=== PATIENT | female | born 1940 | race Caucasian/White ===

== ENCOUNTER 2021-09-12 07:27 | Emergency (ER) | payer MEDICARE, OTHER ==
[~2021-09-12] VITALS: Ht 180.3 cm; Wt 108.9 kg
[2021-09-12] MEDS ORDERED: MORPHINE SULFATE INJECTION 2 MG/ML SYRG IM ONE (08:15)
[2021-09-12] MEDS ORDERED: ONDANSETRON ODT 4 MG TAB PO ONE (08:15)
[2021-09-12] MEDS ORDERED: ACE3T PO (08:24)
[2021-09-12 08:34] VITALS: BP 141/63
== END 2021-09-12 08:57 | disposition home or self-care (01) ==
LOC: ER 07:27
DX: S16.1XXA Strain of muscle, fascia and tendon at neck level, initial encounter (principal); M47.812 Spondylosis without myelopathy or radiculopathy, cervical region; M48.02 Spinal stenosis, cervical region; I10 Essential (primary) hypertension; Z79.899 Other long term (current) drug therapy; X58.XXXA Exposure to other specified factors, initial encounter; Y93.89 Activity, other specified; Y92.89 Other specified places as the place of occurrence of the external cause; Y99.8 Other external cause status
CPT/HCPCS: 72125; 96372; 99284; J2270; Q0162

== ENCOUNTER → 2022-01-07 | Outpatient (CLI) | payer MEDICARE, OTHER ==
[~2022-01-07] MED LIST: ACE3T PO
[2022-01-07 09:32] LABS: Potassium 4.1 mmol/L (3.5-5.1)
[2022-01-07 09:41] LABS: Albumin 3.2 g/dL (3.4-5.0); BUN/Creatinine Ratio 23.1; Bilirubin, Total 0.4 mg/dL (0.2-1.0); Calcium 9.3 mg/dL (8.5-10.1); Total Protein 7.5 g/dL (6.4-8.2)
== END | disposition home or self-care (01) ==
LOC: LAB 08:14
PROVIDERS: ATTEND Internal Medicine
DX: E11.69 Type 2 diabetes mellitus with other specified complication (principal); E78.5 Hyperlipidemia, unspecified
CPT/HCPCS: 36415; 80053; 83036

== ENCOUNTER 2022-07-03 07:45 | Inpatient (IN) | payer MEDICARE, OTHER ==
[~2022-07-03] VITALS: Ht 180.3 cm; Wt 109.3 kg
[2022-07-03 08:48] LABS: Urine Bacteria FEW /hpf (None Seen); Urine Blood Negative /uL (Negative); Urine Hyaline Cast FEW /lpf (0 - 2); Urine Specific Gravity 1.015 (1.001-1.035); Urine WBC 45 /hpf (0 - 5)
[2022-07-03 08:56] LABS: Hematocrit 37.6 % (36.0-46.0); Hemoglobin 12.5 g/dL (12.2-16.2); Mean Corpuscular Hemoglobin 26.9 pg (28.0-32.0); Mean Corpuscular Hgb Conc. 33.3 g/dL (32.0-36.0); Mean Corpuscular Volume 80.9 fL (80.0-100.0)
[2022-07-03 08:58] LABS: Red Blood Cells 4.64 10^6/uL (4.0-5.20); Red Cell Distribution Width 15.2 % (11.8-14.3); White Blood Cell 10.1 10^3/uL (4.4-10.8)
[2022-07-03 09:10] LABS: Basophils % (manual) 0 (0.0-2.0); Blast Cells 0; Metamyelocytes % 0; Myelocytes % 0; Promyelocytes % 0; Reactive Lymphocytes 0
[2022-07-03 09:13] LABS: Albumin 3.4 g/dL (3.4-5.0); Calcium 9.2 mg/dL (8.5-10.1)
[2022-07-03 09:17] LABS: BUN/Creatinine Ratio 20.8; Bilirubin, Total 0.3 mg/dL (0.2-1.0); Total Protein 7.5 g/dL (6.4-8.2)
[2022-07-03 10:52] LABS: Band Neutrophils % (manual) 10; Eosinophils % (manual) 1 (0-7); Lymphocytes % (manual) 25 (10.0-50.0); Monocytes % (manual) 9 (0-12)
[2022-07-03] MEDS ORDERED: ENOXAPARIN SOD 100 MG/1 ML SYRINGE SC ONE (11:45)
[2022-07-03] MEDS ORDERED: cefTRIAXone 1GM/50ML D5W 50 ML IV ONE (11:45)
[2022-07-03] MEDS ORDERED: SODIUM CHLORIDE 0.9% 1,000 ML IV ONE (11:45)
[2022-07-03] MEDS ORDERED: PANTOPRAZOLE 40 MG/10 ML VIAL INJ IV ONE (13:15)
[2022-07-03 14:08] LABS: INR 0.92 (0.9-1.15)
[2022-07-03 14:23] LABS: Cholesterol 175 mg/dL (< 200); Triglycerides 263 mg/dL (< 150)
[2022-07-03 14:24] LABS: HDL Cholesterol 47 mg/dL (40-59); LDL Cholesterol 102 mg/dL (< 100)
[2022-07-03 20:48] LABS: Protein, Urine 20.7 mg/dL (0.0-11.9)
[2022-07-03] MEDS: SODIUM CHLORIDE 0.9% 1,000 ML IV SCH (21:51)
[2022-07-04] MEDS: ENOXAPARIN SOD 100 MG/1 ML SYRINGE SC SCH ×2 (00:02→11:08)
[2022-07-04] MEDS ORDERED: IBUPROFEN 600 MG TAB PO PRN (04:15)
[2022-07-04] MEDS ORDERED: ACETAMINOPHEN/CODEINE#3 (300/30mg) TAB PO PRN (04:15)
[2022-07-04 05:06] LABS: Hematocrit 39.3 % (36.0-46.0); Hemoglobin 13.2 g/dL (12.2-16.2); Mean Corpuscular Hemoglobin 27.3 pg (28.0-32.0); Mean Corpuscular Hgb Conc. 33.6 g/dL (32.0-36.0); Mean Corpuscular Volume 81.4 fL (80.0-100.0); Red Blood Cells 4.83 10^6/uL (4.0-5.20); Red Cell Distribution Width 15.3 % (11.8-14.3); White Blood Cell 11.6 10^3/uL (4.4-10.8)
[2022-07-04 05:12] LABS: Basophils % (manual) 0 (0.0-2.0); Blast Cells 0; Metamyelocytes % 0; Promyelocytes % 0; Reactive Lymphocytes 0
[2022-07-04 05:21] LABS: Albumin 3.5 g/dL (3.4-5.0); BUN/Creatinine Ratio 21.4; Calcium 9.5 mg/dL (8.5-10.1); Potassium 3.7 mmol/L (3.5-5.1)
[2022-07-04 05:24] LABS: Bilirubin, Total 0.4 mg/dL (0.2-1.0); Total Protein 7.8 g/dL (6.4-8.2)
[2022-07-04 06:46] LABS: Band Neutrophils % (manual) 2; Eosinophils % (manual) 1 (0-7); Lymphocytes % (manual) 25 (10.0-50.0); Monocytes % (manual) 8 (0-12); Myelocytes % 1
[2022-07-04 07:55] VITALS: BP 147/78
[2022-07-04 09:00] VITALS: BP 147/78
[2022-07-04] MEDS ORDERED: NEBI5TAB2 PO (09:40)
[2022-07-04] MEDS ORDERED: IRBE300T48 PO (09:40)
[2022-07-04] MEDS ORDERED: PANTOPRAZOLE 40 MG/10 ML VIAL INJ IV SCH (10:00)
[2022-07-04] MEDS: SODIUM CHLORIDE 0.9% 1,000 ML IV SCH (11:08)
[2022-07-04] MEDS ORDERED: ENOXAPARIN SOD 100 MG/1 ML SYRINGE SC SCH (11:15)
[2022-07-04] MEDS ORDERED: cefTRIAXone 1GM/50ML D5W 50 ML IV ONE (12:15)
[2022-07-04 13:00] VITALS: BP 131/60
[2022-07-04 17:00] VITALS: BP 141/62
[2022-07-04 22:00] VITALS: BP 113/47
[2022-07-04] MEDS: APIXABAN 5 MG TAB PO SCH (22:12)
[2022-07-05 05:00] VITALS: BP 103/32
[2022-07-05] MEDS: SODIUM CHLORIDE 0.9% 1,000 ML IV SCH (05:52)
[2022-07-05 09:00] VITALS: BP 132/54
[2022-07-05] MEDS ORDERED: cefTRIAXone 1GM/50ML D5W 50 ML IV SCH (09:00)
[2022-07-05] MEDS: APIXABAN 5 MG TAB PO SCH (10:03)
[2022-07-05 13:18] VITALS: BP_SYST 143; BP_SYST 147; BP_DIAS 59; BP_DIAS 96
[2022-07-05] MEDS ORDERED: APIX5TAB PO (14:31)
[2022-07-11] MEDS ORDERED: APIXABAN 5 MG TAB PO SCH (22:00)
== END 2022-07-05 16:55 | disposition home or self-care (01) | DRG 299 ==
LOC: ER 07:45 → OVERFLOW 13:20 → WEST WING 07-04 07:52
PROVIDERS: ADMIT Nurse Practitioner Family; ATTEND Internal Medicine
DX: I82.411 Acute embolism and thrombosis of right femoral vein (principal); N17.0 Acute kidney failure with tubular necrosis; N39.0 Urinary tract infection, site not specified; D68.59 Other primary thrombophilia; E66.01 Morbid (severe) obesity due to excess calories; I12.9 Hypertensive chronic kidney disease with stage 1 through stage 4 chronic kidney disease, or unspecified chronic kidney disease; N18.30 Chronic kidney disease, stage 3 unspecified; I82.431 Acute embolism and thrombosis of right popliteal vein; Z20.822 Contact with and (suspected) exposure to COVID-19; Z68.33 Body mass index [BMI] 33.0-33.9, adult
CPT/HCPCS: 36415; 76775; 80053; 80061; 81001; 82570; 83036; 83970; 84100; 84156; 84300; 84443; 85007; 85027; 85610; 87086; 87426; 93971; 96365; C9113; G0378; J0696

== ENCOUNTER → 2022-07-17 | Outpatient (CLI) | payer MEDICARE, OTHER ==
[~2022-07-17] MED LIST changes: +APIX5TAB PO; +IRBE300T48 PO; +NEBI5TAB2 PO
== END | disposition home or self-care (01) ==
LOC: LAB 13:38
PROVIDERS: ATTEND Internal Medicine Cardiovascular Disease
DX: R94.4 Abnormal results of kidney function studies (principal)
CPT/HCPCS: 36415; 82565; 84520

== ENCOUNTER → 2022-07-18 | Outpatient (CLI) | payer MEDICARE, OTHER ==
[~2022-07-18] MED LIST changes: +IOHEXOL 350 MG/ML 100ML IJ ONE
[2022-07-18 10:00] VITALS: BP 132/56
[2022-07-18 10:37] VITALS: BP 154/52
== END | disposition home or self-care (01) ==
LOC: Rad HDHVI 09:34
PROVIDERS: ATTEND Internal Medicine Cardiovascular Disease
DX: I70.0 Atherosclerosis of aorta (principal); N94.89 Other specified conditions associated with female genital organs and menstrual cycle; N28.1 Cyst of kidney, acquired
CPT/HCPCS: 74177; G0463; Q9967

== ENCOUNTER → 2022-07-30 | Outpatient (CLI) | payer MEDICARE, OTHER ==
[~2022-07-30] MED LIST changes: -IOHEXOL 350 MG/ML 100ML IJ ONE
== END | disposition home or self-care (01) ==
LOC: Rad HDHVI 09:31
PROVIDERS: ATTEND Internal Medicine Cardiovascular Disease
DX: R07.89 Other chest pain (principal); R06.02 Shortness of breath; E78.5 Hyperlipidemia, unspecified
CPT/HCPCS: 93306

== ENCOUNTER → 2022-08-07 | Outpatient (CLI) | payer MEDICARE, OTHER | END | disposition home or self-care (01) | LOC: Rad HDHVI 09:32 | PROVIDERS: ATTEND Internal Medicine Cardiovascular Disease | DX: I82.431 Acute embolism and thrombosis of right popliteal vein (principal); D23.72 Other benign neoplasm of skin of left lower limb, including hip | CPT/HCPCS: 93971 ==

== ENCOUNTER → 2022-10-23 | Outpatient (CLI) | payer MEDICARE, OTHER | END | disposition home or self-care (01) | LOC: Rad HDHVI 08:06 | PROVIDERS: ATTEND Internal Medicine Cardiovascular Disease | DX: I82.401 Acute embolism and thrombosis of unspecified deep veins of right lower extremity (principal) | CPT/HCPCS: 93971 ==

== ENCOUNTER → 2023-01-15 | Outpatient (CLI) | payer MEDICARE, OTHER | END | disposition home or self-care (01) | LOC: Rad HDHVI 13:28 | PROVIDERS: ATTEND Internal Medicine Cardiovascular Disease | DX: I82.409 Acute embolism and thrombosis of unspecified deep veins of unspecified lower extremity (principal) | CPT/HCPCS: 93925 ==

== ENCOUNTER 2024-11-20 07:34 | Inpatient (IN) | payer MEDICARE, OTHER ==
[~2024-11-20] VITALS: Ht 180.3 cm; Wt 95.0 kg
[~2024-11-20 07:34] MED LIST changes: +NEBI5TAB10 PO; -NEBI5TAB2 PO
--- NOTE | 2024-11-20 07:55 | ED.PDOC ---
History of Present Illness HPI Comments 84-year-old female presents to the ER with spouse and with prior medical history of hypertension, arthritis; surgical history of cholecystectomy plan of UE. Patient reports on having right hand pain for five months and was prescribed with pain medication and with the worsening symptoms of the right hand of it being swollen and erythema. Patient states I think it might be infected, as well as her pain meds not working. Patient notes on taking water pills, as well as having bilateral lower edema. Denies chills, fever, N/V/D, SOB, CP. No other associated symptoms, modifiers, recent injuries or sick contacts present at this time. Time Seen by MD: 07:50 Primary Care Provider: CHAVO Reviewed Notes: Nurses Notes, Medications, Allergies Allergies: Coded Allergies: NO KNOWN ALLERGIES (Unverified , 02/07/14) Home Meds Active Scripts Apixaban Base (ELIQUIS) 5 Mg Tab, 10 MG PO BID for 7 Days, #14 TAB 10MG BID X 7 DAYS THEN 5MG PO BID FOR AT LEAST 6 MONTHS FOR DVT/PE TREATMENT Prov:NADIA CAICEDO MD 07/05/22 Acetaminophen W/ Codeine (Tylenol W/Cod #3) 1 Tab Tb, 1 TAB PO QIDP, #10 TAB 0 Refills Prov:LINDSEY NAVARRO 09/12/21 Reported Medications Nebivolol Hcl (Bystolic) 5 Mg Tab, 0.5 TAB PO DAILY, #90 TAB 1 Refill 07/04/22 Irbesartan-Hydrochlorothiazide (Irbesartan/Hydrochlorothi 300-12.5 mg) 1 Tab Tab, 1 TAB PO DAILY, TAB 07/04/22 Information Source: Patient, Spouse Mode of Arrival: Ambulatory Severity: Moderate Timing: Came on: Gradually Duration: Since onset Prehospital treatment: None Past Medical History PAST MEDICAL HISTORY: Arthritis, HTN Surgical History: Cholecystectomy TECHNICAL ASSOCIATE History: No Pertinent TECHNICAL ASSOCIATE History Family History Family History: Reviewed,noncontributory to illness, Unknown Social History Smoker: Non-Smoker Alcohol: Denies ETOH Use Drugs: Denies Drug Use Lives In: Home Constitutional: denies: chills, diaphoresis, fatigue, fever, malaise, sweats, weakness, others EENTM: denies: blurred vision, double vision, ear bleeding, ear discharge, ear drainage, ear pain, ear ringing, eye pain, eye redness, hearing loss, mouth pain, mouth swelling, nasal discharge, nose bleeding, nose congestion, nose pain, photophobia, tearing, throat pain, throat swelling, voice changes, others Respiratory: denies: cough, hemoptysis, orthopnea, SOB at rest, shortness of breath, SOB with excertion, stridor, wheezing, others Cardiovascular: reports: edema (Bilateral); denies: chest pain, dizzy spells, diaphoresis, Dyspnea on exertion, irregular heart beat, left arm pain, lightheadedness, palpitations, PND, syncope, others Gastrointestinal: denies: abdomen distended, abdominal pain, blood streaked bowels, constipated, diarrhea, dysphagia, difficulty swallowing, hematemesis, melena, nausea, poor appetite, poor fluid intake, rectal bleeding, rectal pain, vomiting, others Genitourinary: denies: abnormal vagina bleeding, burning, dyspareunia, dysuria, flank pain, frequency, hematuria, incontinence, pain, , vagina disc harge, urgency, others Neurological: denies: dizziness, fainting, headache, left sided numbness, left sided weakness, numbness, paresthesia, pre-existing deficit, right sided numbness, right sided weakness, seizure, speech problems, tingling, tremors, weakness, others Musculoskeletal: denies: back pain, gout, joint pain, joint swelling, muscle pain, muscle stiffness, neck pain, others Integumetry: denies: bruises, change in color, change in hair/nails, dryness, laceration, lesions, lumps, rash, wounds, others Allergic/Immunocompromised: denies: Difficulty Healing, Frequent Infections, Hives, Itching, others Hematologic/Lymphatic: denies: anemia, blood clots, easy bleeding, easy bruising, swollen glands, others Endocrine: denies: excessive hunger, excessive sweating, excessive thirst, excessive urination, flushing, intolerance to cold, intolerance to heat, unexplained weight gain, unexplained weight loss, others Psychiatric: denies: anxiety, bipolar disorder, depression, hopeless, panic disorder, schizophrenia, sleepless, suicidal, others All Other Systems: Reviewed and Negative Physical Exam General Appearance: Moderate Distress, Normal HEENT: Normal ENT Inspection, Pharynx Normal, TMs Normal Neck: Full Range of Motion, Non-Tender, Normal, Normal Inspection Respiratory: Chest Non-Tender, Lungs Clear, No Accessory Muscle Use, No Respiratory Distress, Normal Breath Sounds Cardiovascular: No Edema, No JVD, No Murmur, No Gallop, Normal Peripheral Pulses, Regular Rate/Rhythm Breast Exam: Deferred Gastrointestinal: No Organomegaly, Non Tender, No Pulsatile Mass, Normal Bowel Sounds, Soft Genitalia: Deferred Pelvic: Deferred Rectal: Deferred Extremities: No calf tenderness, Normal capillary refill, Normal range of motion, Non-tender, Pedal edema, Swelling (Right hand) Musculoskeletal : Apperance: Normal Neurologic: Alert, 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 Was a procedure done?: No Differential Dx Considerations may include: Cellulitis CHF X-Ray, Labs, Meds, VS Patient alert. Has right hand swelling. Bilateral lower extremity swelling. Vitals stable. Answering questions. Possible cellulitis. Establish intravenous access. Was given pain medication. Was given Rocephin. Was given clindamycin. Explained to the patient that she will be admitted at 7:50 a.m. for cellulitis CHF. Continue cardiac monitoring. Time of 1ST Reevaluation: 08:20 Reevaluation 1ST: Unchanged Patient Education/Counseling: Diagnosis, Treatment, Prognosis Family Education/Counseling: No Family Present Departure 1 Departure Time of Disposition: 07:59 Impression: Primary Impression: Cellulitis Qualified Codes: L03.113 - Cellulitis of right upper limb Additional Impressions: Hypertension Qualified Codes: I10 - Essential (primary) hypertension CHF (congestive heart failure) Qualified Codes: I50.43 - Acute on chronic combined systolic (congestive) and diastolic (congestive) heart failure Disposition: ADMITTED INPATIENT Admit to: Med Surg Condition: Guarded Critical Care Note Critical Care Time?: No Stability Stability form required: No Heart Score Heart Score: Heart Score Response (Comments) Value History Slightly Suspicious 0 EKG Normal 0 Age >65 2 Risk Factors >3 or Hx ASHD 2 Troponin Normal limit 0 Total 4 I personally scribed for MURPHY MELLO MD ([email or web address]) on 5/24/25 at 07:55. Electronically submitted by Jose Shah ([email or web address]). MURPHY MELLO MD November 20, 2024 07:55
[2024-11-20] MEDS ORDERED: FUROSEMIDE 20 MG/2 ML VIAL IV ONE (08:00)
[2024-11-20] MEDS ORDERED: CLINDAMYCIN 300MG IV 50 ML IV ONE (08:00)
[2024-11-20] MEDS ORDERED: ONDANSETRON HCL 4 MG/2 ML VIAL IV ONE (08:00)
[2024-11-20] MEDS ORDERED: MORPHINE SULFATE 4 MG/ML SYR/VIAL IV ONE (08:00)
[2024-11-20 08:30] LABS: Chloride 102 mmol/L (98-107); Potassium 3.8 mmol/L (3.5-5.1); Sodium 139 mmol/L (136-145)
[2024-11-20 08:31] LABS: Anion Gap 11 (5-15); Carbon Dioxide 26 mmol/L (20-31)
[2024-11-20 08:35] LABS: Basophils # (auto) 0 10 ^3/uL (0-0.2); Basophils % (auto) 0.4 % (0.0-2.0); Eosinophils # (auto) 0.1 10 ^3/uL (0-0.8); Eosinophils % (auto) 1.2 % (0.0-7.0); Hematocrit 36.7 % (36.0-46.0); Hemoglobin 11.7 g/dL (12.2-16.2); Lymphocytes # (auto) 1.3 10 ^3/uL (0.4-5.4); Lymphocytes % (auto) 11.4 % (10.0-50.0); Mean Corpuscular Hemoglobin 25.6 pg (28.0-32.0); Monocytes # (auto) 0.9 10 ^3/uL (0-1.3); Monocytes % (auto) 8.1 % (0.0-12.0); Neutrophils # (auto) 9.1 10 ^3/uL (1.6-8.6); Neutrophils % (auto) 78.9 % (37.0-80.0); Platelet Count (auto) 365 10^3/uL (140-450); Red Blood Cells 4.59 10^6/uL (4.0-5.20); Red Cell Distribution Width 14.9 % (11.8-14.3); White Blood Cell 11.5 10^3/uL (4.4-10.8)
[2024-11-20 08:36] LABS: BUN/Creatinine Ratio 27.7 (10.0-20.0)
[2024-11-20 08:38] LABS: Blood Urea Nitrogen 36 mg/dL (9-23); Glucose 152 mg/dL (74-106)
[2024-11-20] MEDS ORDERED: GLIP2.5T9 PO (09:27)
[2024-11-20] MEDS ORDERED: FURO40TA4 PO (09:27)
[2024-11-20] MEDS ORDERED: DOCUSATE SOD 100 MG CAP PO PRN (09:30)
[2024-11-20] MEDS ORDERED: DEXTROSE (50%) 50ML SYRG IV PRN (09:30)
[2024-11-20] MEDS ORDERED: ONDANSETRON HCL 4 MG/2 ML VIAL IV PRN (09:30)
--- NOTE | 2024-11-20 09:30 | DVHHP2 ---
History of Present Illness Reason for Visit: Right hand pain and swelling History of Present Illness Olinda Randhawa is an 84-year old female with past medical history of hypertension, arthritis, and diabetes, who came to the hospital due to right hand pain and swelling. Patient has multiple healing scabs to the dorsal aspect of her right hand. She states she has had those for a while and that she picks at them from time to time. She states she came in today due to swelling and redness that started yesterday. She also states her swelling to her bilateral lower extremities has worsened. Cardiovascular: HTN Heme/Onc: Cancer (Breast) Musculoskeletal: Osteoarthritis Endocrine: Diabetes Past Surgical History: Cholecystectomy, Other (left breast lumpectomy) Smoke: No ALCOHOL: none Drugs: None Lives: with Family Review of Systems Constitutional: No: Fever, Chills, Sweats, Weakness, Malaise, Other Eyes: No: Pain, Vision change, Conjunctivae inflammation, Eyelid inflammation, Other, Redness ENT: No: Ear pain, Ear discharge, Nose pain, Nose discharge, Nose congestion, M outh pain, Mouth swelling, Throat pain, Throat swelling, Other Respiratory: No: Cough, Dry, Shortness of breath, SOB with excertion, Wheezing, Hemoptysis, Pleuritic Pain, Sputum, Wheezing, Other Cardiovascular: Edema (bilateral lower extremity swelling); No: Chest Pain, Palpitations, Orthopnea, Paroxysmal Noc. Dyspnea, Lt Headedness, Other Gastrointestinal: No: Nausea, Vomiting, Abdominal Pain, Diarrhea, Constipation, Melena, Hematochezia, Other Genitourinary: No Dysuria, No Frequency, No Incontinence, No Hematuria, No Retention, No Other Musculoskeletal: No: other, neck pain, shoulder pain, arm pain, back pain, hand pain, leg pain, foot pain Skin: Lesions (right hand pain, redness, swelling, multiple lesions with scabs); No: Rash, Jaundice, Bruising, Other Neurological: No: Weakness, Numbness, Incoordination, Change in speech, Confusion, Seizures, Other Allergies: Coded Allergies: NO KNOWN ALLERGIES (Unverified , 02/07/14) Medications Current Medications Medications Dose Ordered Sig/Federico Route Start Time Stop Time Status Last Admin Dose Admin Sodium Chloride 10 ml Q8HR IV 11/20/24 14:00 UNV Acetaminophen/ Hydrocodone Bitart 1 tab Q4HP PRN PO 11/20/24 09:30 UNV Ondansetron HCl 4 mg Q4HP PRN IV 11/20/24 09:30 UNV Docusate Sodium 100 mg BIDPRN PRN PO 11/20/24 09:30 UNV Acetaminophen 650 mg Q6HP PRN PO 11/20/24 09:30 UNV Clindamycin Phosphate 50 ml @ 50 mls/hr Q8HR IV 11/20/24 14:00 UNV Ceftriaxone Sodium 50 ml @ 100 mls/hr DAILY@09 IV 11/21/24 09:00 UNV Patient Own Medication 1 tab DAILY PO 11/20/24 10:00 UNV Patient Own Medication 0.5 tab DAILY PO 11/20/24 10:00 UNV Exam Vital Signs Vital Signs Date Time Temp Pulse Resp B/P (MAP) Pulse Ox O2 Delivery O2 Flow Rate FiO2 11/20/24 07:59 99.3 86 18 130/86 (101) 97 99.3 General Appearance: Alert, Oriented X3, Cooperative, mild distress HEENT: Atraumatic, PERRLA Respiratory: Clear to auscultation, Normal air movement Cardiovascular: Regular rate, Normal S1, Normal S2, No murmurs Abdominal: Normal bowel sounds, Soft, No tenderness Extremities: No clubbing, No cyanosis, Normal pulses, No tenderness/swelling Skin: No rashes, No breakdown, No significant lesion (multiiple lesions to dorsal side of right hand, red, swollen, painful) Neuro: Normal gait, Normal speech, Strength at 5/5 X4 ext Psych/Mental Status: Mental status NL, Mood NL Labs/Xrays Labs Test 11/20/24 08:04 Range/Units White Blood Count 11.5 H 4.4-10.8 10^3/uL Red Blood Count 4.59 4.0-5.20 10^6/uL Hemoglobin 11.7 L 12.2-16.2 g/dL Hematocrit 36.7 36.0-46.0 % Mean Corpuscular Volume 80.0 80.0-100.0 fL Mean Corpuscular Hemoglobin 25.6 L 28.0-32.0 pg Mean Corpuscular Hemoglobin Concent 32.0 32.0-36.0 g/dL Red Cell Distribution Width 14.9 H 11.8-14.3 % Platelet Count 365 140-450 10^3/uL Mean Platelet Volume 7.3 6.9-10.8 fL Neutrophils (%) (Auto) 78.9 37.0-80.0 % Lymphocytes (%) (Auto) 11.4 10.0-50.0 % Monocytes (%) (Auto) 8.1 0.0-12.0 % Eosinophils (%) (Auto) 1.2 0.0-7.0 % Basophils (%) (Auto) 0.4 0.0-2.0 % Neutrophils # (Auto) 9.1 H 1.6-8.6 10 ^3/uL Lymphocytes # (Auto) 1.3 0.4-5.4 10 ^3/uL Monocytes # (Auto) 0.9 0-1.3 10 ^3/uL Eosinophils # (Auto) 0.1 0-0.8 10 ^3/uL Basophils # (Auto) 0 0-0.2 10 ^3/uL Nucleated Red Blood Cells 0.0 % Sodium Level 139 136-145 mmol/L Potassium Level 3.8 3.5-5.1 mmol/L Chloride Level 102 98-107 mmol/L Carbon Dioxide Level 26 20-31 mmol/L Anion Gap 11 5-15 Blood Urea Nitrogen 36 H 9-23 mg/dL Creatinine 1.30 H 0.550-1.02 mg/dL Glomerular Filtration Rate Calc 40 >90 mL/min BUN/Creatinine Ratio 27.7 H 10.0-20.0 Serum Glucose 152 H 74-106 mg/dL Calcium Level 10.0 8.7-10.4 mg/dL Troponin I High Sensitivity 4 </=34 ng/L Assessment/Plan Assessment/Plan Assessment: Cellulitis, Hyperglycemia, Leukocytosis, Hypertension, Plan: Admit to Med-Surg, Wound care consult, Wound culture, IV antibiotics, A1c, Accu checks Q AC&HS with sliding scale, Home medications reconciled, Plan discussed with: Patient, Spouse My Orders Orders - SHANA OWEN Procedure Category Date Status Time Admit ADMIT 11/20/24 Transmitted 09:21 Code Status CODE 11/20/24 Transmitted 09:21 Sodium Chloride Lock PHA 11/20/24 Logged (Saline Lock Ns) 14:00 Hydrocodone-Acet PHA 11/20/24 Logged 5/325mg Tab ([place] 09:30 Ondansetron Hcl PHA 5/24/25 Logged (Zofran) 09:30 Docusate Sodium PHA 11/20/24 Logged Capsule (Colace 09:30 Complete Blood Count LAB 11/21/24 Verified 04:00 Comprehensive LAB 11/21/24 Verified Metabolic Panel 04:00 Condition: Serious GERARDO 11/20/24 In Process 09:21 Acetaminophen Tablet PHA 11/20/24 Logged (Tylenol Tablet) 09:30 Clindamycin 600mg Iv PHA 11/20/24 Logged (Cleocin Iv) 14:00 Ceftriaxone 1gm/50ml PHA 11/21/24 Logged D5w (Rocephin) 09:00 (NF) PHA 11/20/24 Logged Irbesartan-Hydrochlorothiazide 10:00 (Nf) Nebivolol Hcl PHA 11/20/24 Logged (Bystolic) 10:00 (Nf) Glipizide PHA 11/20/24 Transmitted (Glipizide Er) 10:00 Mild Sliding Scale PHA 11/20/24 Verified 11:30 Dextrose 50% Syringe PHA 11/20/24 Verified 09:30 2 Gm Sodium Diet DIET 11/20/24 Verified Breakfast Date of Service: November 20, 2024 Billing Provider: SHANA OWEN Common Visit Codes: [id number] INP/OBS CARE (MOD) SHANA OWEN November 20, 2024 09:30
[2024-11-20] MEDS ORDERED: METOPROLOL TARTRATE 25 MG TAB PO SCH (10:00)
[2024-11-20 10:44] VITALS: PULSE 74; RESP 14; O2SAT 98
[2024-11-20] MEDS: InsuLIN REG 1unit/0.01ml Soln (100units/ml) SC SCH (11:30)
[2024-11-20 11:40] VITALS: BP 145/55; PULSE 78; RESP 18; TEMP 98; O2SAT 96
[2024-11-20] MEDS: ACCU-CHEK COMFORT CURVE STRIP VI SCH (11:54)
[2024-11-20] MEDS: HYDROcodone-ACET 5/325MG TAB PO PRN (12:02)
[2024-11-20] MEDS: cefTRIAXone 1GM/50ML D5W 50 ML IV ONE (14:30)
[2024-11-20] MEDS: SODIUM CHLOR 0.9% PF (SALINE LOCK) 10ML VIAL/SYR IV SCH (15:25)
[2024-11-20] MEDS: CLINDAMYCIN 600MG IV 50 ML IV SCH (15:25)
[2024-11-20 16:58] VITALS: BP 139/58; PULSE 80; RESP 19; TEMP 97.4; O2SAT 96
[2024-11-20 20:00] VITALS: PULSE 77; RESP 18; O2SAT 97
[2024-11-20 21:00] VITALS: BP 136/60; PULSE 69; RESP 18; TEMP 98; O2SAT 97
[2024-11-20] MEDS: MORPHINE SULFATE INJ 2 MG/ml SYRG IV ONE (22:48)
[2024-11-21] VITALS (9 sets, daily range): BP systolic 129–163; BP diastolic 55–87; PULSE 78–95; RESP 17–18; TEMP 97.4–98.3; O2SAT 90–97
[2024-11-21] MEDS: MORPHINE SULFATE INJ 2 MG/ml SYRG IV ONE (05:35)
[2024-11-21 07:05] LABS: Basophils # (auto) 0.1 10 ^3/uL (0-0.2); Basophils % (auto) 0.6 % (0.0-2.0); Eosinophils # (auto) 0.1 10 ^3/uL (0-0.8); Eosinophils % (auto) 1.1 % (0.0-7.0); Hematocrit 37.8 % (36.0-46.0); Hemoglobin 12.3 g/dL (12.2-16.2); Lymphocytes # (auto) 1.2 10 ^3/uL (0.4-5.4); Lymphocytes % (auto) 11.4 % (10.0-50.0); Mean Corpuscular Hemoglobin 26.2 pg (28.0-32.0); Mean Corpuscular Hgb Conc. 32.6 g/dL (32.0-36.0); Mean Corpuscular Volume 80.2 fL (80.0-100.0); Monocytes # (auto) 0.9 10 ^3/uL (0-1.3); Monocytes % (auto) 8.5 % (0.0-12.0); Neutrophils # (auto) 8.6 10 ^3/uL (1.6-8.6); Neutrophils % (auto) 78.4 % (37.0-80.0); Nucleated Red Blood Cells % 0.1 %; Platelet Count (auto) 298 10^3/uL (140-450); Red Blood Cells 4.71 10^6/uL (4.0-5.20); Red Cell Distribution Width 15.1 % (11.8-14.3); White Blood Cell 10.9 10^3/uL (4.4-10.8)
[2024-11-21 07:25] LABS: Alanine Aminotransferase 19 U/L (7-40); Anion Gap 10 (5-15); Aspartate Aminotransferase 25 U/L (13-40); BUN/Creatinine Ratio 21.4 (10.0-20.0); Blood Urea Nitrogen 21 mg/dL (9-23); Carbon Dioxide 26 mmol/L (20-31); Chloride 103 mmol/L (98-107); Potassium 3.6 mmol/L (3.5-5.1); Sodium 139 mmol/L (136-145); Total Protein 6.7 g/dL (5.7-8.2)
[2024-11-21 07:26] LABS: Bilirubin, Total 0.5 mg/dL (0.2-1.0)
[2024-11-21 07:32] LABS: Alkaline Phosphatase 119 U/L (46-116); Glucose 123 mg/dL (74-106)
--- NOTE | 2024-11-21 07:57 | DVH ---
PROCEDURE: Right hand radiographs. INDICATION: right hand pain swelling and redness TECHNIQUE: 3 views of the right hand were obtained. COMPARISON: None FINDINGS: There is no evidence of fracture or dislocation. 1st carpometacarpal joint space narrowing and osteophytes. Joint spaces are otherwise maintained. The soft tissues are unremarkable. IMPRESSION: 1. No fracture or dislocation. 2. 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
[2024-11-21] MEDS: cefTRIAXone 1GM/50ML D5W 50 ML IV SCH (08:44)
[2024-11-21] MEDS: LOSARTAN POTASSIUM 50 MG TAB PO SCH (09:31)
--- NOTE | 2024-11-21 13:30 | DVHPN2 ---
Subjective 84-year-old female who came with a chief complaint of 2 days of right hand swelling Changes from previous H/P or p: Changes Eyes: No Pain, No Vision change, No Conjunctivae inflammation, No Eyelid inflammation, No Other, No Redness ENT: No Ear pain, No Ear discharge, No Nose pain, No Nose discharge, No Nose congestion, No Mouth pain, No Mouth swelling, No Throat pain, No Throat swelling, No Other Cardiovascular: No Chest Pain, No Palpitations, No Orthopnea, No Paroxysmal Noc. Dyspnea; Edema (bilateral lower extremity swelling); No Lt Headedness, No Other Respiratory: No Cough, No Dry, No Shortness of breath, No SOB with excertion, No Wheezing, No Hemoptysis, No Pleuritic Pain, No Sputum, No Other Gastrointestinal: No Nausea, No Vomiting, No Abdominal Pain, No Diarrhea, No Constipation, No Melena, No Hematochezia, No Other Genitourinary: No Dysuria, No Frequency, No Incontinence, No Hematuria, No Retention, No Other Musculoskeletal: No other, No neck pain, No shoulder pain, No arm pain, No back pain, No hand pain, No leg pain, No foot pain Skin: No Rash; Lesions (right hand pain, redness, swelling, multiple lesions with scabs); No Jaundice, No Bruising, No Other Objective Vitals Vital Signs Date Time Temp Pulse Resp B/P (MAP) Pulse Ox O2 Delivery O2 Flow Rate FiO2 11/21/24 09:31 140/80 11/21/24 09:00 97.5 82 18 92 97.5 11/21/24 08:00 Room Air* 0 21 Intake/Output Intake and Output 11/21/24 07:00 Intake Total 1000 ml Balance 1000 ml Intake Oral 900 ml IV Total 100 ml # Voids 1 General Appearance: Alert, Oriented X3, Cooperative, No acute distress Lungs: Clear to auscultation, Normal air movement Cardiovascular: Regular rate, Normal S1 Abdomen: Normal bowel sounds, Soft, No tenderness Extremities: No edema Medications Current Medications Medications Dose Ordered Sig/Federico Route Start Time Stop Time Status Last Admin Dose Admin Sodium Chloride 10 ml Q8HR IV 11/20/24 14:00 11/21/24 05:44 10 ML Acetaminophen/ Hydrocodone Bitart 1 tab Q4HP PRN PO 11/20/24 09:30 11/21/24 02:32 1 TAB Ondansetron HCl 4 mg Q4HP PRN IV 11/20/24 09:30 Docusate Sodium 100 mg BIDPRN PRN PO 11/20/24 09:30 Acetaminophen 650 mg Q6HP PRN PO 11/20/24 09:30 Clindamycin Phosphate 50 ml @ 50 mls/hr Q8HR IV 11/20/24 14:00 11/21/24 05:35 50 MLS/HR Ceftriaxone Sodium 50 ml @ 100 mls/hr DAILY@09 IV 11/21/24 09:00 11/21/24 08:44 100 MLS/HR Losartan Potassium 100 mg DAILY PO 11/21/24 10:00 11/21/24 09:31 100 MG Patient Own Medication 1 tab DAILY PO 11/20/24 10:00 Diagnostic Test (Pha) 1 strip ACHS 11/20/24 11:30 11/21/24 11:08 1 STRIP Insulin Human Regular ACHS SC 11/20/24 11:30 11/21/24 11:10 2 UNITS Dextrose 50 ml UD PRN IV 11/20/24 09:30 Laboratory Results Laboratory Tests 11/21/24 05:52 Chemistry Test 11/21/24 05:52 Albumin 4.0 g/dL (3.2-4.8) Calcium Level 10.0 mg/dL (8.7-10.4) Total Protein 6.7 g/dL (5.7-8.2) LFT Test 11/21/24 05:52 Alanine Aminotransferase (ALT) 19 U/L (7-40) Alkaline Phosphatase 119 U/L (46-116) H Aspartate Amino Transferase (AST) 25 U/L (13-40) Total Bilirubin 0.5 mg/dL (0.2-1.0) Assessment/Plan Assessment/Plan Right hand cellulitis Hypertension History of breast cancer Osteoarthritis Type 2 diabetes Plan IV antibiotics clindamycin and Rocephin Monitor the patient closely Full code Advance directives discussed for 18 minutes Plan discussed with: Patient Date of Service: November 21, 2024 Billing Provider: ALLISON PEREZ MD Common Visit Codes: [id number] INP/OBS CARE(HIGH) Secondary Visit Codes: [id number] CARE PLAN 30 MINUTES ALLISON PEREZ MD November 21, 2024 13:30
[2024-11-22 05:00] VITALS: BP 149/70; PULSE 90; RESP 19; TEMP 98.2; O2SAT 96
[2024-11-22 09:00] VITALS: BP 140/68; PULSE 86; RESP 16; TEMP 98.1; O2SAT 97
--- NOTE | 2024-11-22 12:20 | DVHPN2 ---
Reviewed: Care Plan, H&P, Labs, Medications, Previous Orders, Radiology Changes from previous H/P or p: No Changes Eyes: No Pain, No Vision change, No Conjunctivae inflammation, No Eyelid inflammation, No Other, No Redness ENT: No Ear pain, No Ear discharge, No Nose pain, No Nose discharge, No Nose congestion, No Mouth pain, No Mouth swelling, No Throat pain, No Throat swelling, No Other Cardiovascular: No Chest Pain, No Palpitations, No Orthopnea, No Paroxysmal Noc. Dyspnea; Edema (bilateral lower extremity swelling); No Lt Headedness, No Other Respiratory: No Cough, No Dry, No Shortness of breath, No SOB with excertion, No Wheezing, No Hemoptysis, No Pleuritic Pain, No Sputum, No Other Gastrointestinal: No Nausea, No Vomiting, No Abdominal Pain, No Diarrhea, No Constipation, No Melena, No Hematochezia, No Other Genitourinary: No Dysuria, No Frequency, No Incontinence, No Hematuria, No Retention, No Other Musculoskeletal: No other, No neck pain, No shoulder pain, No arm pain, No back pain, No hand pain, No leg pain, No foot pain Skin: No Rash; Lesions (right hand pain, redness, swelling, multiple lesions with scabs); No Jaundice, No Bruising, No Other Objective Vitals Vital Signs Date Time Temp Pulse Resp B/P (MAP) Pulse Ox O2 Delivery O2 Flow Rate FiO2 11/22/24 09:00 98.1 86 16 140/68 (92) 97 98.1 11/22/24 08:00 Room Air* 0 21 Intake/Output Intake and Output 11/22/24 07:00 Intake Total 900 ml Balance 900 ml Intake Oral 800 ml IV Total 100 ml # Voids 2 General Appearance: Alert, Oriented X3, Cooperative, No acute distress Lungs: Clear to auscultation, Normal air movement Cardiovascular: Regular rate, Normal S1 Abdomen: Normal bowel sounds, Soft, No tenderness Extremities: No edema Medications Current Medications Medications Dose Ordered Sig/Federico Route Start Time Stop Time Status Last Admin Dose Admin Sodium Chloride 10 ml Q8HR IV 11/20/24 14:00 11/22/24 05:34 10 ML Acetaminophen/ Hydrocodone Bitart 1 tab Q4HP PRN PO 11/20/24 09:30 11/22/24 08:55 1 TAB Ondansetron HCl 4 mg Q4HP PRN IV 11/20/24 09:30 Docusate Sodium 100 mg BIDPRN PRN PO 11/20/24 09:30 Acetaminophen 650 mg Q6HP PRN PO 11/20/24 09:30 Clindamycin Phosphate 50 ml @ 50 mls/hr Q8HR IV 11/20/24 14:00 11/22/24 05:27 50 MLS/HR Ceftriaxone Sodium 50 ml @ 100 mls/hr DAILY@09 IV 11/21/24 09:00 11/22/24 08:56 100 MLS/HR Losartan Potassium 100 mg DAILY PO 11/21/24 10:00 11/22/24 08:56 100 MG Patient Own Medication 1 tab DAILY PO 11/20/24 10:00 Diagnostic Test (Pha) 1 strip ACHS 11/20/24 11:30 11/22/24 11:29 1 STRIP Insulin Human Regular ACHS SC 11/20/24 11:30 11/21/24 21:37 2 UNITS Dextrose 50 ml UD PRN IV 11/20/24 09:30 Laboratory Results Laboratory Tests 11/21/24 05:52 Labs and/or images reviewed: Labs reviewed by me, Image(s) reviewed by me Assessment/Plan Assessment/Plan Right hand cellulitis : Rocephin clindamycin morphine Hypertension History of breast cancer Osteoarthritis Uncontrolled type 2 diabetes: Insulin sliding scale Physical therapy evaluation Son Mj [phone] bedside. He lives in [facility] at bedside Patient wants morphine for the pain She Needs intravenous antibiotics for two weeks cellulitis right hand, does not want [facility] facility placement, w9ill [place] home on Friday on home health for IV antibiotics Plan discussed with: Patient Date of Service: November 22, 2024 Billing Provider: BECKI VALVERDE MD Common Visit Codes: [id number] INP/OBS CARE(HIGH) BECKI VALVERDE MD November 22, 2024 12:20
[2024-11-22] MEDS: MORPHINE SULFATE INJ 2 MG/ml SYRG IV PRN (12:43)
[2024-11-22 12:59] VITALS: BP 142/62; PULSE 82; RESP 17; TEMP 98.1; O2SAT 97
[2024-11-22 17:00] VITALS: BP 150/69; PULSE 102; RESP 19; TEMP 98.9; O2SAT 97
[2024-11-22 21:00] VITALS: BP 130/59; PULSE 117; RESP 18; TEMP 98.5; O2SAT 93
[2024-11-23 05:00] VITALS: BP 127/62; PULSE 107; RESP 20; TEMP 98.5; O2SAT 97
[2024-11-23 08:00] VITALS: PULSE 94; RESP 16; O2SAT 94
[2024-11-23 09:00] VITALS: BP 129/55; PULSE 94; RESP 16; TEMP 98.1; O2SAT 94
[2024-11-23] MEDS: GLIPIZIDE 2.5 MG PO SCH (09:05)
--- NOTE | 2024-11-23 09:05 | DVHPN2 ---
Progress Note - Dictate Date Seen: November 23, 2024 Subjective PT WELL KNOWN TO ME HX OF DVT HYPERCOAGULABLE STATE HTN DIABETES NOW WITH CELLULITIS JEET HX OF BREAST CA vital signs Vital Sign Date Time Temp Pulse Resp B/P (MAP) Pulse Ox O2 Delivery O2 Flow Rate FiO2 11/23/24 06:20 100 16 119/68 11/23/24 05:00 98.5 97 98.5 11/22/24 20:00 Room Air* 0 21 Total Intake and Output 11/22/24 11/22/24 11/23/24 15:00 23:00 07:00 Intake Total 500 ml 100 ml Output Total 0 ml Balance 500 ml 100 ml medications Current Medications Medications Dose Ordered Sig/Federico Route Start Time Stop Time Status Last Admin Dose Admin Sodium Chloride 10 ml Q8HR IV 11/20/24 14:00 11/23/24 04:58 10 ML Ondansetron HCl 4 mg Q4HP PRN IV 11/20/24 09:30 Docusate Sodium 100 mg BIDPRN PRN PO 11/20/24 09:30 Acetaminophen 650 mg Q6HP PRN PO 11/20/24 09:30 Clindamycin Phosphate 50 ml @ 50 mls/hr Q8HR IV 11/20/24 14:00 11/23/24 04:58 50 MLS/HR Ceftriaxone Sodium 50 ml @ 100 mls/hr DAILY@09 IV 11/21/24 09:00 11/22/24 08:56 100 MLS/HR Losartan Potassium 100 mg DAILY PO 11/21/24 10:00 11/22/24 08:56 100 MG Patient Own Medication 1 tab DAILY PO 11/20/24 10:00 Diagnostic Test (Pha) 1 strip ACHS 11/20/24 11:30 11/23/24 05:56 1 STRIP Insulin Human Regular ACHS SC 11/20/24 11:30 11/23/24 05:56 2 UNITS Dextrose 50 ml UD PRN IV 11/20/24 09:30 Morphine Sulfate 2 mg Q4HPRN PRN IV 11/22/24 12:30 11/23/24 05:44 2 MG objective HEENT NO JVD CAROTIDS WNL PUL CLEAT CV RR EXT EDEMA RIGHT SWELLING laboratory and microbiology Laboratory Tests 11/21/24 05:52 Test 11/21/24 05:52 Range/Units Serum Glucose 123 H 74-106 mg/dL Problem List HX OF DVT HYPERCOAGULABLE STATE HTN DIABETES NOW WITH CELLULITIS JEET HX OF BREAST CA Assessment/Plan ABX PT WOUND CARE Dietary Evaluation Review Recommendations by RD: Dietary education by RD Comments: 1) Initiate MVI @ 1 tb qd 2) Initiate vitamin C @ 500 mg bid and zinc sulfate @ 220 mg qd for 7-10 days 3) Encourage optimal PO intake 4) Refer to outpatient RD/CD[facility] for weight management 5) Continue to monitor I&O, labs, and skin integrity Expected Outcomes/Goals: 1) appetite and labs to improve 2) wounds to improve 3) f/u in 3-5 days Plan discussed with: Patient GINA TOMLINSON MD November 23, 2024 09:05
--- NOTE | 2024-11-23 11:26 | DVHPN2 ---
Reviewed: Care Plan, H&P, Labs, Medications, Previous Orders, Radiology Changes from previous H/P or p: No Changes Eyes: No Pain, No Vision change, No Conjunctivae inflammation, No Eyelid inflammation, No Other, No Redness ENT: No Ear pain, No Ear discharge, No Nose pain, No Nose discharge, No Nose congestion, No Mouth pain, No Mouth swelling, No Throat pain, No Throat swelling, No Other Cardiovascular: No Chest Pain, No Palpitations, No Orthopnea, No Paroxysmal Noc. Dyspnea; Edema (bilateral lower extremity swelling); No Lt Headedness, No Other Respiratory: No Cough, No Dry, No Shortness of breath, No SOB with excertion, No Wheezing, No Hemoptysis, No Pleuritic Pain, No Sputum, No Other Gastrointestinal: No Nausea, No Vomiting, No Abdominal Pain, No Diarrhea, No Constipation, No Melena, No Hematochezia, No Other Genitourinary: No Dysuria, No Frequency, No Incontinence, No Hematuria, No Retention, No Other Musculoskeletal: No other, No neck pain, No shoulder pain, No arm pain, No back pain, No hand pain, No leg pain, No foot pain Skin: No Rash; Lesions (right hand pain, redness, swelling, multiple lesions with scabs); No Jaundice, No Bruising, No Other Objective Vitals Vital Signs Date Time Temp Pulse Resp B/P (MAP) Pulse Ox O2 Delivery O2 Flow Rate FiO2 11/23/24 09:06 129/55 11/23/24 09:00 98.1 94 16 94 98.1 11/23/24 08:00 Room Air* 0 21 Intake/Output Intake and Output 11/23/24 07:00 Intake Total 600 ml Output Total 0 ml Balance 600 ml Intake Oral 500 ml IV Total 100 ml Output Urine Total 0 ml # Voids 1 General Appearance: Alert, Oriented X3, Cooperative, No acute distress Lungs: Clear to auscultation, Normal air movement Cardiovascular: Regular rate, Normal S1 Abdomen: Normal bowel sounds, Soft, No tenderness Extremities: No edema Medications Current Medications Medications Dose Ordered Sig/Federico Route Start Time Stop Time Status Last Admin Dose Admin Sodium Chloride 10 ml Q8HR IV 11/20/24 14:00 11/23/24 04:58 10 ML Ondansetron HCl 4 mg Q4HP PRN IV 11/20/24 09:30 Docusate Sodium 100 mg BIDPRN PRN PO 11/20/24 09:30 Acetaminophen 650 mg Q6HP PRN PO 11/20/24 09:30 Clindamycin Phosphate 50 ml @ 50 mls/hr Q8HR IV 11/20/24 14:00 11/23/24 04:58 50 MLS/HR Ceftriaxone Sodium 50 ml @ 100 mls/hr DAILY@09 IV 11/21/24 09:00 11/23/24 09:05 100 MLS/HR Losartan Potassium 100 mg DAILY PO 11/21/24 10:00 11/23/24 09:06 100 MG Patient Own Medication 1 tab DAILY PO 11/20/24 10:00 Diagnostic Test (Pha) 1 strip ACHS 11/20/24 11:30 11/23/24 05:56 1 STRIP Insulin Human Regular ACHS SC 11/20/24 11:30 11/23/24 05:56 2 UNITS Dextrose 50 ml UD PRN IV 11/20/24 09:30 Morphine Sulfate 2 mg Q4HPRN PRN IV 11/22/24 12:30 11/23/24 05:44 2 MG Laboratory Results Laboratory Tests 11/21/24 05:52 Labs and/or images reviewed: Labs reviewed by me, Image(s) reviewed by me Assessment/Plan Assessment/Plan Right hand cellulitis : Rocephin clindamycin morphine Hypertension History of breast cancer Osteoarthritis Uncontrolled type 2 diabetes: Insulin sliding scale Physical therapy evaluation Son Mj [phone] bedside. He lives in [facility] at bedside She Needs intravenous antibiotics for two weeks cellulitis right hand, does not want snf facility placement, Discharged home today on home health for IV antibiotics Rocephin 1 g IV daily for two weeks, clindamycin 600 mg IV q.12h for two weeks Plan discussed with: Patient My Orders Orders - BECKI VALVERDE MD Procedure Category Date Status Time Blood Culture BRENNA 11/22/24 In Process 12:04 Pt Request For Service PT 11/22/24 Logged 12:21 Insert Midline ORDERS 11/22/24 Transmitted 12:21 Morphine Sulfate PHA 11/22/24 In Process Injection 12:30 Date of Service: November 23, 2024 Billing Provider: BECKI VALVERDE MD Common Visit Codes: [id number] INP/OBS CARE(HIGH) BECKI VALVERDE MD November 23, 2024 11:26
--- NOTE | 2024-11-23 11:33 | DVHPN2 ---
Reviewed: Care Plan, H&P, Labs, Medications, Previous Orders, Radiology Changes from previous H/P or p: No Changes Eyes: No Pain, No Vision change, No Conjunctivae inflammation, No Eyelid inflammation, No Other, No Redness ENT: No Ear pain, No Ear discharge, No Nose pain, No Nose discharge, No Nose congestion, No Mouth pain, No Mouth swelling, No Throat pain, No Throat swelling, No Other Cardiovascular: No Chest Pain, No Palpitations, No Orthopnea, No Paroxysmal Noc. Dyspnea; Edema (bilateral lower extremity swelling); No Lt Headedness, No Other Respiratory: No Cough, No Dry, No Shortness of breath, No SOB with excertion, No Wheezing, No Hemoptysis, No Pleuritic Pain, No Sputum, No Other Gastrointestinal: No Nausea, No Vomiting, No Abdominal Pain, No Diarrhea, No Constipation, No Melena, No Hematochezia, No Other Genitourinary: No Dysuria, No Frequency, No Incontinence, No Hematuria, No Retention, No Other Musculoskeletal: No other, No neck pain, No shoulder pain, No arm pain, No back pain, No hand pain, No leg pain, No foot pain Skin: No Rash; Lesions (right hand pain, redness, swelling, multiple lesions with scabs); No Jaundice, No Bruising, No Other Objective Vitals Vital Signs Date Time Temp Pulse Resp B/P (MAP) Pulse Ox O2 Delivery O2 Flow Rate FiO2 11/23/24 09:06 129/55 11/23/24 09:00 98.1 94 16 94 98.1 11/23/24 08:00 Room Air* 0 21 Intake/Output Intake and Output 11/23/24 07:00 Intake Total 600 ml Output Total 0 ml Balance 600 ml Intake Oral 500 ml IV Total 100 ml Output Urine Total 0 ml # Voids 1 General Appearance: Alert, Oriented X3, Cooperative, No acute distress Lungs: Clear to auscultation, Normal air movement Cardiovascular: Regular rate, Normal S1 Abdomen: Normal bowel sounds, Soft, No tenderness Extremities: No edema Medications Current Medications Medications Dose Ordered Sig/Federico Route Start Time Stop Time Status Last Admin Dose Admin Sodium Chloride 10 ml Q8HR IV 11/20/24 14:00 11/23/24 04:58 10 ML Ondansetron HCl 4 mg Q4HP PRN IV 11/20/24 09:30 Docusate Sodium 100 mg BIDPRN PRN PO 11/20/24 09:30 Acetaminophen 650 mg Q6HP PRN PO 11/20/24 09:30 Clindamycin Phosphate 50 ml @ 50 mls/hr Q8HR IV 11/20/24 14:00 11/23/24 04:58 50 MLS/HR Ceftriaxone Sodium 50 ml @ 100 mls/hr DAILY@09 IV 11/21/24 09:00 11/23/24 09:05 100 MLS/HR Losartan Potassium 100 mg DAILY PO 11/21/24 10:00 11/23/24 09:06 100 MG Patient Own Medication 1 tab DAILY PO 11/20/24 10:00 Diagnostic Test (Pha) 1 strip ACHS 11/20/24 11:30 11/23/24 05:56 1 STRIP Insulin Human Regular ACHS SC 11/20/24 11:30 11/23/24 05:56 2 UNITS Dextrose 50 ml UD PRN IV 11/20/24 09:30 Morphine Sulfate 2 mg Q4HPRN PRN IV 11/22/24 12:30 11/23/24 05:44 2 MG Laboratory Results Laboratory Tests 11/21/24 05:52 Assessment/Plan Assessment/Plan Right hand cellulitis : Rocephin clindamycin morphine Hypertension History of breast cancer Osteoarthritis Uncontrolled type 2 diabetes: Insulin sliding scale Physical therapy evaluation Son Mj [phone] bedside. He lives in [facility] at bedside She Needs intravenous antibiotics for two weeks cellulitis right hand, does not want retirement facility placement, Discharged home today on home health for IV antibiotics Rocephin 1 g IV daily for two weeks, clindamycin 600 mg IV q.12h for two weeks Plan discussed with: Patient My Orders Orders - BECKI VALVERDE MD Procedure Category Date Status Time Blood Culture BRENNA 11/22/24 In Process 12:04 Pt Request For Service PT 11/22/24 Logged 12:21 Insert Midline ORDERS 11/22/24 Transmitted 12:21 Morphine Sulfate PHA 11/22/24 In Process Injection 12:30 Date of Service: November 23, 2024 Billing Provider: BECKI VALVERDE MD Common Visit Codes: [id number] INP/OBS CARE(HIGH) BECKI VALVERDE MD November 23, 2024 11:33
--- NOTE | 2024-11-23 11:36 | DVHDS2 ---
Discharge Summary Date of Admission November 20, 2024 at 09:21 Date of Discharge: November 23, 2024 Admitting Diagnosis Infection of the right hand Wounds: Cellulitis right hand Labs/Diagnostic Data: Laboratory Results Test 11/23/24 05:47 11/21/24 05:52 11/20/24 08:04 POC Glucose 142 mg/dl (70-106) White Blood Count 10.9 10^3/uL (4.4-10.8) Red Blood Count 4.71 10^6/uL (4.0-5.20) Hemoglobin 12.3 g/dL (12.2-16.2) Hematocrit 37.8 % (36.0-46.0) Mean Corpuscular Volume 80.2 fL (80.0-100.0) Mean Corpuscular Hemoglobin 26.2 pg (28.0-32.0) Mean Corpuscular Hemoglobin Concent 32.6 g/dL (32.0-36.0) Red Cell Distribution Width 15.1 % (11.8-14.3) Platelet Count 298 10^3/uL (140-450) Mean Platelet Volume 7.6 fL (6.9-10.8) Neutrophils (%) (Auto) 78.4 % (37.0-80.0) Lymphocytes (%) (Auto) 11.4 % (10.0-50.0) Monocytes (%) (Auto) 8.5 % (0.0-12.0) Eosinophils (%) (Auto) 1.1 % (0.0-7.0) Basophils (%) (Auto) 0.6 % (0.0-2.0) Neutrophils # (Auto) 8.6 10 ^3/uL (1.6-8.6) Lymphocytes # (Auto) 1.2 10 ^3/uL (0.4-5.4) Monocytes # (Auto) 0.9 10 ^3/uL (0-1.3) Eosinophils # (Auto) 0.1 10 ^3/uL (0-0.8) Basophils # (Auto) 0.1 10 ^3/uL (0-0.2) Nucleated Red Blood Cells 0.1 % Sodium Level 139 mmol/L (136-145) Potassium Level 3.6 mmol/L (3.5-5.1) Chloride Level 103 mmol/L (98-107) Carbon Dioxide Level 26 mmol/L (20-31) Anion Gap 10 (5-15) Blood Urea Nitrogen 21 mg/dL (9-23) Creatinine 0.98 mg/dL (0.550-1.02) Glomerular Filtration Rate Calc 56 mL/min (>90) BUN/Creatinine Ratio 21.4 (10.0-20.0) Serum Glucose 123 mg/dL (74-106) Calcium Level 10.0 mg/dL (8.7-10.4) Total Bilirubin 0.5 mg/dL (0.2-1.0) Aspartate Amino Transferase (AST) 25 U/L (13-40) Alanine Aminotransferase (ALT) 19 U/L (7-40) Alkaline Phosphatase 119 U/L (46-116) Total Protein 6.7 g/dL (5.7-8.2) Albumin 4.0 g/dL (3.2-4.8) Hemoglobin A1c 5.9 % A1C (<5.7) Troponin I High Sensitivity 4 ng/L (</=34) Other Laboratory Tests 11/21/24 05:52 Brief Hx & Hospital Course: 84-year-old female with a history of hypertension breast cancer admitted for cellulitis of the right hand. Treated with Rocephin and clindamycin she had shown improvement afebrile being discharged home on Rocephin and clindamycin for two weeks by home health . patient's son Mj at the bedside. also at the bedside and agreeable for home health for IV antibiotics Consults/Reason for consult None Operations or Procedures None Condition at Discharge: Fair Final Diagnosis/Problems List Right hand cellulitis : Rocephin clindamycin morphine Hypertension History of breast cancer Osteoarthritis Uncontrolled type 2 diabetes: Insulin sliding scale Physical therapy evaluation Son Mj [phone] bedside. He lives in [facility] at bedside She Needs intravenous antibiotics for two weeks cellulitis right hand, does not want detention facility placement, Discharged home today on home health for IV antibiotics Rocephin 1 g IV daily for two weeks, clindamycin 600 mg IV q.12h for two weeks Discharge Disposition: Home with Health Services Discharge Instruct/Medications Diet: Cardiac 2g Na,low cholest Activity: Light activity Medications: Rocephin 1 g IV daily for two weeks Clindamycin 600 mg IV q.12h for two weeks Both for cellulitis right hand 39 (Time Taken for discharge summary 39 minutes) Discharge Statement: "Patient was advised to return to the ER or call 911 if any headaches, dizziness, shortness of breath, chest pain, abdominal pain, bleeding, fevers, or worsening of medical condition. Patient was counseled about treatment plan, medications, possible side effects, patientverbalized understanding. All questions were answered to the best of my ability. This discharge took greater then 30 minutes in planning, reviewing documentation, counseling the patient, and discussing with other team members." ASSESSMENT ASSESSMENT Hospital Course Marginally improved Assessment Right hand cellulitis : Rocephin clindamycin morphine Hypertension History of breast cancer Osteoarthritis Uncontrolled type 2 diabetes: Insulin sliding scale Physical therapy evaluation Son Mj [phone] bedside. He lives in [facility] at bedside She Needs intravenous antibiotics for two weeks cellulitis right hand, does not want detention facility placement, Discharged home today on home health for IV antibiotics Rocephin 1 g IV daily for two weeks, clindamycin 600 mg IV q.12h for two weeks Date of Service: November 23, 2024 Billing Provider: BECKI VALVERDE MD Common Visit Codes: [id number] DISCH DAY >30min BECKI VALVERDE MD November 23, 2024 11:36
[2024-11-23 12:30] VITALS: BP 144/71; PULSE 104; RESP 16; TEMP 98.4; O2SAT 95
[2024-11-23] MEDS ORDERED: HYDR1TAB97 PO (12:47)
[2024-11-23] MEDS ORDERED: CLIN1CAP70 PO (14:01)
[2024-11-23 15:40] VITALS: BP 144/71; PULSE 104; RESP 16; TEMP 98.4; O2SAT 95
[2024-11-23] MEDS: ACETAMINOPHEN 325 MG TAB PO PRN (15:50)
== END 2024-11-23 16:30 | disposition home health service (06) | DRG 603 ==
LOC: ER 07:34 → OVERFLOW 09:21 → WEST WING 11:30
PROVIDERS: ADMIT Family Medicine; ATTEND Family Medicine
PROC: 05HA33Z Insertion of Infusion Device into Left Brachial Vein, Percutaneous Approach (ICD-10-PCS; principal; 2024-11-22)
PROC: B54NZZA Ultrasonography of Left Upper Extremity Veins, Guidance (ICD-10-PCS; 2024-11-22)
DX: L03.113 Cellulitis of right upper limb (principal); E11.65 Type 2 diabetes mellitus with hyperglycemia; I11.0 Hypertensive heart disease with heart failure; I50.9 Heart failure, unspecified; Z90.49 Acquired absence of other specified parts of digestive tract; Z79.2 Long term (current) use of antibiotics; Z79.899 Other long term (current) drug therapy; Z79.1 Long term (current) use of non-steroidal anti-inflammatories (NSAID); Z85.3 Personal history of malignant neoplasm of breast; Z86.718 Personal history of other venous thrombosis and embolism
CPT/HCPCS: 36415; 73130; 80048; 80053; 82962; 83036; 84484; 85025; 87040; 96365; 96375; 97163; G0378; J1815; J3490